=== PATIENT | male | born 1970 | race Asian ===

== ENCOUNTER 2018-08-04 07:55 | Day surgery (SDC) | payer OTHER ==
[2018-08-04] VITALS (14 sets, daily range): BP systolic 86–112; BP diastolic 51–66; PULSE 53–78; RESP 12–20; Ht 160 cm; Wt 62.2 kg
[~2018-08-04] VITALS: Ht 160 cm; Wt 62.2 kg
[~2018-08-04 07:55] MED LIST: CYCL10TA7 PO; EPHEDrine 25 MG/5 ML SYG ONE; HYDR-3498 PO; IBUP-1542 PO; LEVOTHYROXINE PO; NAPR-688 PO; POLY10DR RIGHT EYE
[2018-08-04] MEDS ORDERED: CEFAZOLIN 2 GM/50 ML (PMX) 50 ML IVPB ONE (10:30)
[2018-08-04] MEDS ORDERED: SOD CHLORIDE 0.9% 1,000 ML IV SCH (10:30)
[2018-08-04] MEDS ORDERED: BUPIVACAINE 0.25% (MPF) 30 ML INJ ONE (11:36)
--- NOTE | 2018-08-04 11:50 | PREAC ---
Date/Time of Note Date/Time of Note DATE: 08/04/18 TIME: 11:48 Anesthesia Eval and Record Evaluation Time Pre-Procedure Interview DATE: 08/04/18 TIME: 11:48 Age 48 Sex male NPO: 8 hrs Preoperative diagnosis Right Wrist Ganglion Cyst Planned procedure Excision of Right Wrist Ganglion Cyst Past Medical History Past Medical History: Includes Cardio: Dyslipidemia Endo: Hypothyroid Surgery & Anesthesia Issues No known issue Meds Anticoagulation: No Beta Flor within 24 hr: No Reason Beta Flor not given: Pt. not on B-Flor Active Scripts Ibuprofen* (Motrin*) 600 Mg Tab, 600 MG PO Q6, #20 TAB Prov:MARYLOU BARTLETT PA-C 05/18/15 Hydrocodone Bit-Acetaminophen* ([place]*) 5-325 Mg Tab, 1 TAB PO Q6 PRN for PAIN, #20 TAB Prov:ELEAZAR HODGES PA-C 05/14/15 Ibuprofen* (Motrin*) 600 Mg Tab, 600 MG PO Q6H PRN for PAIN AND OR ELEVATED TEMP, #30 TAB Prov:ELEAZAR HODGES PA-C 05/14/15 Cyclobenzaprine Hcl* (Cyclobenzaprine Hcl*) 10 Mg Tablet, 10 MG PO TID, #20 TAB Prov:ELEAZAR HODGES PA-C 05/14/15 Polymyxin/Trimethoprim* (Polytrim* Eye Drops) 10 Ml Drops, 1 DROP RIGHT EYE QID for 7 Days, EA Prov:TROY BRAXTON PA-C 01/17/15 Naproxen* (Naproxen*) 500 Mg Tablet, 500 MG PO BID PRN for PAIN, #30 TAB Prov:SUSIE BLACK PA-C 12/04/14 Reported Medications [Levothyroxine] No Conflict Check, 88 MCG PO DAILY 02/22/09 Current Medications Sodium Chloride 1,000 ml @ 75 mls/hr [id number] IV Last administered on 08/04/18at 09:53; Admin Dose 75 MLS/HR; Start 08/04/18 at 10:30; Stop 08/04/18 at 23:49 Meds reviewed: Yes Allergies Coded Allergies: No Known Allergies (Verified Allergy, Mild, 05/14/15) Allergies Reviewed: Yes Labs/Studies Labs Reviewed: Reviewed by anesthesiologist Result Diagram: 08/04/1892908/04/1830 Laboratory Tests 08/04/18 09:30 test: N/A Studies: ECG (n/a), CXR (n/a) Pre-procedure Exam Last vitals Vital Signs Date Temp Pulse Resp B/P (MAP) Pulse Ox O2 O2 Flow FiO2 Time Delivery Rate 08/04/18 97.2 53 18 86/51 (63) 99 Room Air 09:46 Airway: Adequate mouth opening, Adequate thyromental dist Mallampati: Mallampati II Teeth: Normal Lung: Normal Heart: Normal ASA Physical Status ASA physical status: 2 Emergency: None Planned Anesthetic General/MAC: LMA Planned Pain Management Parenteral pain med Pre-operative Attestations Prior to commencing anesthesia and surgery, the patient was re-evaluated, there was verification of: *The patient's identity *The results of appropriate recent lab work and preoperative vital signs *The above evaluation not changing prior to induction *Anesthetic plan, risk benefits, alternative and complications discussed with patient/family; questions answered; patient/family understands, accepts and wishes to proceed. JACOBY PATEL MD Aug 04, 2018 11:50
[2018-08-04] MEDS ORDERED: HYDROmorphONE 1 MG/5 ML IV SYRINGE IV PRN ×2 (12:00)
[2018-08-04] MEDS ORDERED: MEPERIDINE 25 MG INJ IV PRN (12:00)
[2018-08-04] MEDS ORDERED: DIPHENHYDRAMINE 50 MG INJ IV PRN (12:00)
[2018-08-04] MEDS ORDERED: ONDANSETRON 4 MG INJ IV PRN (12:00)
[2018-08-04] MEDS ORDERED: PROPOFOL 20 ML ONE (12:00)
[2018-08-04] MEDS ORDERED: LABETALOL HCL 20MG INJ IV PRN (12:00)
[2018-08-04] MEDS ORDERED: METOCLOPRAMIDE 10 MG INJ IV PRN (12:00)
[2018-08-04] MEDS ORDERED: OXYCODONE/ACETAMINOPHEN (5/325) TAB PO PRN (12:00)
[2018-08-04] MEDS ORDERED: MIDAZOLAM 1 MG/ML 2 ML INJ ONE (12:00)
[2018-08-04] MEDS ORDERED: FENTAnyl 50 MCG/ML VIAL IV PRN ×2 (12:00)
[2018-08-04] MEDS ORDERED: FENTAnyl 50 MCG/ML VIAL ONE (12:00)
[2018-08-04] MEDS ORDERED: CEFAZOLIN 1 GM INJ ONE (12:23)
[2018-08-04] MEDS ORDERED: ONDANSETRON 4 MG INJ ONE (12:23)
[2018-08-04] MEDS ORDERED: METOCLOPRAMIDE 10 MG INJ ONE (12:24)
[2018-08-04] MEDS ORDERED: KETOROLAC 30 MG INJ ONE (12:24)
[2018-08-04] MEDS ORDERED: DEXAMETHASONE 4 MG/ML 5 ML INJ ONE (12:24)
[2018-08-04] MEDS ORDERED: HYDROCODONE/APAP (5/325) TAB PO ONE (12:30)
--- NOTE | 2018-08-04 12:34 | OPR ---
Date/Time of Note Date/Time of Note DATE: 08/04/18 TIME: 12:31 Operative Report Procedure Date: Aug 04, 2018 Preoperative Diagnosis right wrist dorsal ganglion cyst Postoperative Diagnosis same Operation/Procedure Performed 1. right wrist dorsal ganglion cystectomy 2 cm cyst 2 cm incision 2. localized adjacent tissue transfer with the use of skin flaps 4 sq cm defect 3. therapeutic injection of subcutaneous local anesthesia Surgeon see signature line [employer] Re[employer] Inspector none Anesthesia Type: general Estimated Blood Loss: 0 - 10 ml's Transfusion none Specimen right wrist dorsal ganglion cyst Grafts/Implants none Complications none Pt Condition Post Procedure: stable Indications This is a 48-year-old male with a right wrist dorsal ganglion cyst. He request surgical excision of the cyst. Risks alternatives benefits and personal were discussed the patient. Potential complications including but not limited to bleeding infection nerve injury tendon injury injury to surrounding areas chronic pain and recurrence the risk in particular when overexerting or extended flexion extension of the wrist. Patient expressed understanding and consents to the operation. Procedure Description Patient is taken to the OR and prepped and draped in usual sterile fashion. Surgical time was performed. IV antibiotics given. Transverse incision was made over the right wrist dorsal ganglion cyst. Dissection with cardioscan of t he cyst. The cyst was ruptured in a controlled fashion and the contents were extruded out which are clear. Cyst is dissected down with mosquito all the way down to the cyst base. This was then excised. Good hemostasis status. Due to tissue defect localized adjacent to his transfer with use of skin flaps was performed. Multilayer closed with interrupted 3-0 Vicryl and running 4-0 Monocryl. Therapeutic contains local anesthesia was injected at the incision site. Dermabond was applied. Maikol ARGUELLES Aug 04, 2018 12:34
--- NOTE | 2018-08-04 12:36 | PAC ---
Date/Time of Note Date/Time of Note DATE: 08/04/18 TIME: 12:36 Post-Anesthesia Notes Post-Anesthesia Note Last documented vital signs Vital Signs Date Temp Pulse Resp B/P (MAP) Pulse Ox O2 O2 Flow FiO2 Time Delivery Rate 08/04/18 98.0 53 18 86/51 (63) 99 Room Air 12:36 Activity: WNL Respiratory function: WNL Cardiovascular function: WNL Mental status: Baseline Pain reasonably controlled: Yes Hydration appropriate: Yes Nausea/Vomiting absent: Yes JACOBY PATEL MD Aug 04, 2018 12:36
== END 2018-08-04 14:55 | disposition home or self-care (01) ==
LOC: SDS 07:55
PROVIDERS: ATTEND Surgery
DX: M67.431 Ganglion, right wrist (principal); E03.9 Hypothyroidism, unspecified
CPT/HCPCS: 25111; 80053; 85025; 85610; 85730; 88304; J0690; J1100; J1885; J2250; J2405; J2765; J3010; Z7512; Z7610